=== PATIENT | male | born 1995 | race Caucasian/White ===

== ENCOUNTER 2019-04-22 16:55 | Emergency (ER) | payer OTHER ==
[~2019-04-22] VITALS: Ht 175.2 cm; Wt 72.6 kg
[~2019-04-22 16:55] MED LIST: AUGMENTIN 400 M1 CTB PO; NKHM
[2019-04-22 16:59] VITALS: BP 134/60
== END 2019-04-22 17:19 | disposition home or self-care (01) ==
LOC: ED 16:55
DX: S60.041A Contusion of right ring finger without damage to nail, initial encounter (principal); Z46.89 Encounter for fitting and adjustment of other specified devices; X58.XXXA Exposure to other specified factors, initial encounter; Y93.89 Activity, other specified; Y92.89 Other specified places as the place of occurrence of the external cause; Y99.8 Other external cause status

== ENCOUNTER 2021-03-21 14:57 | Emergency (ER) | payer OTHER ==
[~2021-03-21] VITALS: Ht 172.7 cm; Wt 64.9 kg
[2021-03-21 16:05] VITALS: BP 136/76
[2021-03-21] MEDS ORDERED: PREDNISONE20 M1 PO (19:54)
[2021-03-21] MEDS ORDERED: PROVENTIL HFA6.7 GM INH (19:54)
== END 2021-03-21 19:56 | disposition home or self-care (01) ==
LOC: ED 14:57
DX: J20.8 Acute bronchitis due to other specified organisms (principal); F45.8 Other somatoform disorders; F17.200 Nicotine dependence, unspecified, uncomplicated

== ENCOUNTER 2021-08-06 14:41 | Emergency (ER) | payer OTHER ==
[~2021-08-06] VITALS: Ht 170.1 cm; Wt 62.1 kg
[~2021-08-06 14:41] MED LIST changes: +PREDNISONE20 M1 PO; +PROVENTIL HFA6.7 GM INH
[2021-08-06 16:30] VITALS: BP 130/78
[2021-08-06 17:08] LABS: EOS % 0.5 % (1.0-4.0); LYMPH # 1.1 10*3/uL (1.3-4.4); LYMPH % 25.2 % (27.0-41.0); MEAN CELL VOLUME 91.3 fl (80.0-94.0); MEAN CORPUSCULAR HGB 31.1 pg (27.0-31.0); MEAN PLATELET VOLUME 11.5 fl (9.6-12.3); MONO # 0.4 10*3/uL (0.1-1.0); MONO % 8.1 % (3.0-9.0); NEUT # 2.9 10*3/uL (2.3-7.9); PLATELET COUNT AUTOMATED 189 10*3/uL (130-400); RED BLOOD COUNT 5.15 10*6/uL (4.50-5.90); RED CELL DISTRI WIDTH 11.6 % (0-14.5); WHITE BLOOD COUNT 4.3 10*3/uL (4.8-10.8)
[2021-08-06 17:18] LABS: ACT PARTIAL THROMBO TIME 28.7 SECONDS (20.0-32.1)
[2021-08-06 17:25] LABS: ALBUMIN 4.1 gm/dl (3.1-4.5); ALKALINE PHOSPHATASE 67 U/L (45-117); BUN 10 mg/dl (7-24); CHLORIDE 107 mmol/L (98-107); CREATININE 0.86 mg/dL (0.70-1.30); LIPASE 90 U/L (73-393); POTASSIUM 3.9 mmol/L (3.5-5.1); SGOT/AST 26 IU/L (3-35); SGPT/ALT 37 U/L (12-78); SODIUM 139 mmol/L (136-145); TOTAL PROTEIN 7.6 gm/dL (6.4-8.2)
[2021-08-06] MEDS ORDERED: PHENERGAN25 M3 PO (18:32)
[2021-08-06] MEDS ORDERED: DECADRON6 M1 PO (18:32)
== END 2021-08-06 19:15 | disposition home or self-care (01) ==
LOC: ED 14:41
PROVIDERS: Emergency Medicine
DX: U07.1 COVID-19 (principal); J45.909 Unspecified asthma, uncomplicated

== ENCOUNTER 2022-07-18 19:25 | Emergency (ER) | payer OTHER ==
[~2022-07-18] VITALS: Ht 172.7 cm; Wt 65.8 kg
[~2022-07-18 19:25] MED LIST changes: +DECADRON6 M1 PO; +PHENERGAN25 M3 PO
[2022-07-18] MEDS ORDERED: NARCAN4 MG DEVI (21:18)
[2022-07-18 21:27] VITALS: BP 120/50
== END 2022-07-18 21:30 | disposition home or self-care (01) ==
LOC: ED 19:25
DX: T40.411A Poisoning by fentanyl or fentanyl analogs, accidental (unintentional), initial encounter (principal); T39.1X1A Poisoning by 4-Aminophenol derivatives, accidental (unintentional), initial encounter; R40.4 Transient alteration of awareness; Y92.89 Other specified places as the place of occurrence of the external cause